=== PATIENT | female | born 1990 | race African-American/Black ===

== ENCOUNTER 2017-09-17 14:43 | Emergency (ER) | payer OTHER ==
[~2017-09-17] VITALS: Ht 165.1 cm; Wt 70.3 kg
[~2017-09-17 14:43] MED LIST: ULTRAM 50MG TAB50 MG PO
[2017-09-17 15:04] LABS: URINE BILIRUBIN NEGATIVE (Negative); URINE BLOOD 3+ (Negative); URINE CLARITY SL CLOUDY; URINE COLOR YELLOW; URINE GLUCOSE-RANDOM* NEGATIVE (Negative); URINE KETONES NEGATIVE (Negative); URINE NITRITE-REFLEX NEGATIVE (Negative); URINE PROTEIN (DIPSTICK) 1+ (Negative)
[2017-09-17 15:05] LABS: URINE LEUKOCYTES-REFLEX 3+ (Negative)
[2017-09-17 15:11] LABS: SQUAMOUS >10 Many /LPF (0-3); URINE WBC-REFLEX >25 Many /HPF (0-5)
[2017-09-17 15:12] LABS: BACTERIA-REFLEX >30 Many /HPF (None Seen); URINE RBC 3-10 Few /HPF (0-2)
[2017-09-17 15:13] LABS: CASTS None Seen /LPF (None Seen); CRYSTALS None Seen /LPF (None Seen); MUCUS 0-3 Light strn/LPF (None Seen)
[2017-09-17] MEDS ORDERED: KETOCONAZOLE15 GM TOP (15:24)
[2017-09-17] MEDS ORDERED: MACROBID 100 M100 M1 PO (15:24)
[2017-09-17 15:50] VITALS: BP 121/56
== END 2017-09-17 15:51 | disposition home or self-care (01) ==
LOC: ER 14:43
PROVIDERS: Physician Assistant
DX: N39.0 Urinary tract infection, site not specified (principal); B36.0 Pityriasis versicolor